=== PATIENT | male | born 1955 | race Caucasian/White ===

== ENCOUNTER 2018-10-01 08:00 | Outpatient (CLI) | payer BC ==
[2018-10-01 18:13] LABS: BASOPHILS # (AUTO) 0.1 10^3/uL (0.0-0.1); BASOPHILS % (AUTO) 0.9 %; EOSINOPHILS # (AUTO) 0.5 10^3/uL (0.0-0.7); EOSINOPHILS % (AUTO) 5.4 %; HGB - HEMOGLOBIN 13.5 g/dL (14.0-18.0); LYMPHOCYTES # (AUTO) 1.3 10^3/uL (1.5-3.5); LYMPHOCYTES % (AUTO) 14.8 %; MEAN CORPUSCULAR HEMOGLOBIN 30.7 pg (27.0-31.0); MEAN CORPUSCULAR HGB CONC 32.8 g/dL (32.0-36.0); MEAN CORPUSCULAR VOLUME 93.5 fL (80.0-94.0); MEAN PLATELET VOLUME 7.3 fL (7.4-11.4); MONOCYTES # (AUTO) 0.6 10^3/uL (0.0-1.0); MONOCYTES % (AUTO) 7.3 %; NEUTROPHILS # (AUTO) 6.2 10^3/uL (1.5-6.6); NEUTROPHILS % (AUTO) 71.6 %; PLT - PLATELET COUNT 218 10^3/uL (130-450); RED BLOOD COUNT 4.39 10^6/uL (4.70-6.10); RED CELL DISTRIBUTION WIDTH 13.8 % (12.0-15.0); WHITE BLOOD COUNT 8.7 x10^3/uL (4.8-10.8)
[2018-10-01 18:46] LABS: ALBUMIN/GLOBULIN RATIO 1.4 (1.0-2.2); ALKALINE PHOSPHATASE 96 IU/L (42-121); ALT ALANINE AMINOTRANSFERASE 13 IU/L (10-60); AST ASPARTATE AMINOTRANSFERASE 15 IU/L (10-42); BILIRUBIN,TOTAL 0.5 mg/dL (0.2-1.0); BUN - BLOOD UREA NITROGEN 20 mg/dL (6-20); CALCIUM 9.4 mg/dL (8.5-10.3); CARBON DIOXIDE - CO2 31 mmol/L (21-32); CHLORIDE 103 mmol/L (101-111); CHOL/HDL RATIO 3.5 (<5.0); CHOLESTEROL 182 mg/dL; CREATININE 1.3 mg/dL (0.6-1.2); GFR - MDRD 56 (>89); GLUCOSE 103 mg/dL (70-100); HDL CHOLESTEROL 52 mg/dL; LDL CHOLESTEROL,CALCULATED 116 mg/dL; LDL/HDL RATIO 2.2 (<3.6); SODIUM 140 mmol/L (135-145); TOTAL PROTEIN 6.9 g/dL (6.7-8.2); VLDL CHOLESTEROL 14 mg/dL
== END 2018-10-01 23:59 | disposition home or self-care (01) ==
LOC: LAB.S 08:00
PROVIDERS: ATTEND Nurse Practitioner Family
DX: I10 Essential (primary) hypertension (principal); Z13.220 Encounter for screening for lipoid disorders
CPT/HCPCS: 36415; 80053; 80061; 83721; 84443; 85025

== ENCOUNTER 2018-10-16 08:00 | Outpatient (CLI) | payer BC | END 2018-10-16 23:59 | disposition home or self-care (01) | LOC: LAB.R 08:00 | PROVIDERS: ATTEND Nurse Practitioner Family | DX: D64.9 Anemia, unspecified (principal) | CPT/HCPCS: 82270 ==

== ENCOUNTER 2019-03-11 13:20 | Outpatient (CLI) | payer BC ==
[2019-03-11 17:52] LABS: BASOPHILS # (AUTO) 0.1 10^3/uL (0.0-0.1); BASOPHILS % (AUTO) 1.2 %; EOSINOPHILS # (AUTO) 0.5 10^3/uL (0.0-0.7); EOSINOPHILS % (AUTO) 6.8 %; HGB - HEMOGLOBIN 13.7 g/dL (14.0-18.0); LYMPHOCYTES # (AUTO) 1.9 10^3/uL (1.5-3.5); LYMPHOCYTES % (AUTO) 28.4 %; MEAN CORPUSCULAR HEMOGLOBIN 29.9 pg (27.0-31.0); MEAN CORPUSCULAR HGB CONC 31.9 g/dL (32.0-36.0); MEAN CORPUSCULAR VOLUME 93.9 fL (80.0-94.0); MEAN PLATELET VOLUME 9.5 fL (7.4-11.4); MONOCYTES # (AUTO) 0.7 10^3/uL (0.0-1.0); MONOCYTES % (AUTO) 10.4 %; NEUTROPHILS # (AUTO) 3.6 10^3/uL (1.5-6.6); NEUTROPHILS % (AUTO) 52.9 %; PLT - PLATELET COUNT 213 10^3/uL (130-450); RED BLOOD COUNT 4.58 10^6/uL (4.70-6.10); RED CELL DISTRIBUTION WIDTH 13.4 % (12.0-15.0); WHITE BLOOD COUNT 6.8 x10^3/uL (4.8-10.8)
== END 2019-03-11 13:21 | disposition home or self-care (01) ==
LOC: LAB.F 13:20
PROVIDERS: ATTEND Registered Nurse
DX: D64.9 Anemia, unspecified (principal)
CPT/HCPCS: 36415; 85025

== ENCOUNTER 2020-04-13 10:02 | Outpatient (CLI) | payer BC ==
[2020-04-13 15:08] LABS: BASOPHILS # (AUTO) 0.1 10^3/uL (0.0-0.1); EOSINOPHILS # (AUTO) 0.5 10^3/uL (0.0-0.7); EOSINOPHILS % (AUTO) 7.5 %; HGB - HEMOGLOBIN 14.4 g/dL (14.0-18.0); LYMPHOCYTES # (AUTO) 1.9 10^3/uL (1.5-3.5); LYMPHOCYTES % (AUTO) 30.9 %; MEAN CORPUSCULAR HEMOGLOBIN 30.1 pg (27.0-31.0); MEAN CORPUSCULAR HGB CONC 32.1 g/dL (32.0-36.0); MEAN CORPUSCULAR VOLUME 93.5 fL (80.0-94.0); MEAN PLATELET VOLUME 9.4 fL (7.4-11.4); MONOCYTES # (AUTO) 0.5 10^3/uL (0.0-1.0); MONOCYTES % (AUTO) 7.7 %; NEUTROPHILS # (AUTO) 3.2 10^3/uL (1.5-6.6); NEUTROPHILS % (AUTO) 52.7 %; PLT - PLATELET COUNT 227 10^3/uL (130-450); RED BLOOD COUNT 4.79 10^6/uL (4.70-6.10); RED CELL DISTRIBUTION WIDTH 13.5 % (12.0-15.0)
[2020-04-13 15:34] LABS: ALBUMIN 4.1 g/dL (3.2-5.5); ALBUMIN/GLOBULIN RATIO 1.4 (1.0-2.2); ALKALINE PHOSPHATASE 94 IU/L (42-121); ALT ALANINE AMINOTRANSFERASE 13 IU/L (10-60); AST ASPARTATE AMINOTRANSFERASE 16 IU/L (10-42); BILIRUBIN,TOTAL 0.5 mg/dL (0.2-1.0); BUN - BLOOD UREA NITROGEN 19 mg/dL (6-20); CALCIUM 9.3 mg/dL (8.5-10.3); CARBON DIOXIDE - CO2 28 mmol/L (21-32); CHLORIDE 107 mmol/L (101-111); CHOLESTEROL 203 mg/dL; CREATININE 1.2 mg/dL (0.6-1.2); GLUCOSE 101 mg/dL (70-100); HDL CHOLESTEROL 51 mg/dL; LDL CHOLESTEROL,CALCULATED 139 mg/dL; LDL/HDL RATIO 2.7 (<3.6); SODIUM 139 mmol/L (135-145); VLDL CHOLESTEROL 13 mg/dL
== END 2020-04-13 10:03 | disposition home or self-care (01) ==
LOC: LAB.S 10:02
PROVIDERS: ATTEND Registered Nurse
DX: Z12.5 Encounter for screening for malignant neoplasm of prostate (principal); D64.9 Anemia, unspecified; I10 Essential (primary) hypertension; G47.00 Insomnia, unspecified; J44.9 Chronic obstructive pulmonary disease, unspecified
CPT/HCPCS: 36415; 80053; 80061; 83721; 84153; 84443; 85025

== ENCOUNTER 2021-04-06 10:30 | Outpatient (CLI) | payer BC | END 2021-04-06 10:31 | disposition home or self-care (01) | LOC: LAB.S 10:30 | PROVIDERS: ATTEND Thoracic Surgery (Cardiothoracic Vascular Surgery) | DX: J43.2 Centrilobular emphysema (principal); F17.291 Nicotine dependence, other tobacco product, in remission | CPT/HCPCS: 80323; 81599 ==

== ENCOUNTER 2021-05-04 12:36 | Outpatient (CLI) | payer BC | END 2021-05-04 12:37 | disposition home or self-care (01) | LOC: LAB.S 12:36 | DX: J43.2 Centrilobular emphysema (principal); F17.291 Nicotine dependence, other tobacco product, in remission | CPT/HCPCS: 80323; 81599 ==

== ENCOUNTER 2021-05-19 14:04 | Outpatient (CLI) | payer BC | END 2021-05-19 14:05 | disposition home or self-care (01) | LOC: LAB.S 14:04 | PROVIDERS: ATTEND Thoracic Surgery (Cardiothoracic Vascular Surgery) | DX: J43.2 Centrilobular emphysema (principal); F17.291 Nicotine dependence, other tobacco product, in remission | CPT/HCPCS: 80323; 81599 ==

== ENCOUNTER 2021-08-20 11:13 | Outpatient (CLI) | payer BC ==
[2021-08-20 15:25] LABS: BASOPHILS # (AUTO) 0.1 10^3/uL (0.0-0.1); BASOPHILS % (AUTO) 0.8 %; EOSINOPHILS # (AUTO) 0.4 10^3/uL (0.0-0.7); EOSINOPHILS % (AUTO) 5.3 %; HCT - HEMATOCRIT 45.8 % (42.0-52.0); HGB - HEMOGLOBIN 15.3 g/dL (14.0-18.0); LYMPHOCYTES # (AUTO) 1.5 10^3/uL (1.5-3.5); LYMPHOCYTES % (AUTO) 23.3 %; MEAN CORPUSCULAR HEMOGLOBIN 31.6 pg (27.0-31.0); MEAN CORPUSCULAR HGB CONC 33.4 g/dL (32.0-36.0); MEAN CORPUSCULAR VOLUME 94.6 fL (80.0-94.0); MEAN PLATELET VOLUME 9.2 fL (7.4-11.4); MONOCYTES # (AUTO) 0.6 10^3/uL (0.0-1.0); NEUTROPHILS % (AUTO) 61.4 %; PLT - PLATELET COUNT 268 10^3/uL (130-450); RED BLOOD COUNT 4.84 10^6/uL (4.70-6.10); RED CELL DISTRIBUTION WIDTH 13.4 % (12.0-15.0); WHITE BLOOD COUNT 6.6 x10^3/uL (4.8-10.8)
[2021-08-20 15:59] LABS: ALBUMIN/GLOBULIN RATIO 1.1 (1.0-2.2); ALKALINE PHOSPHATASE 93 IU/L (42-121); ALT ALANINE AMINOTRANSFERASE 20 IU/L (10-60); AST ASPARTATE AMINOTRANSFERASE 18 IU/L (10-42); BILIRUBIN,TOTAL 0.7 mg/dL (0.2-1.0); BUN - BLOOD UREA NITROGEN 21 mg/dL (6-20); CALCIUM 9.4 mg/dL (8.5-10.3); CARBON DIOXIDE - CO2 28 mmol/L (21-32); CHLORIDE 102 mmol/L (101-111); CHOL/HDL RATIO 3.9 (<5.0); CHOLESTEROL 242 mg/dL; CREATININE 1.1 mg/dL (0.6-1.2); GFR - MDRD 67 (>89); GLUCOSE 107 mg/dL (70-100); HDL CHOLESTEROL 62 mg/dL; LDL CHOLESTEROL,CALCULATED 167 mg/dL; LDL/HDL RATIO 2.7 (<3.6); POTASSIUM 4.1 mmol/L (3.5-5.0); SODIUM 139 mmol/L (135-145); TOTAL PROTEIN 7.5 g/dL (6.7-8.2); TRIGLYCERIDES 65 mg/dL; VLDL CHOLESTEROL 13 mg/dL
== END 2021-08-20 11:14 | disposition home or self-care (01) ==
LOC: LAB.S 11:13
PROVIDERS: ATTEND Nurse Practitioner Family
DX: I10 Essential (primary) hypertension (principal); Z12.5 Encounter for screening for malignant neoplasm of prostate; Z13.220 Encounter for screening for lipoid disorders
CPT/HCPCS: 36415; 80053; 80061; 83721; 84153; 84443; 85025

== ENCOUNTER 2021-08-30 10:28 | Outpatient (CLI) | payer MEDICARE, OTHER ==
--- NOTE | 2021-08-30 11:06 | XRAY Report ---
PROCEDURE: Chest 2 View X-Ray INDICATIONS: PULMONARY EMPHYSEMA TECHNIQUE: 2 view(s) of the chest. COMPARISON: None. FINDINGS: Surgical changes and devices: Left hilar metallic stents consistent with history of pulmonary valves. . Lungs and pleura: Hyperinflation suggesting emphysema. There is flattening of the right hemidiaphrag m. The right costophrenic sulcus is not included on the study. Slightly coarse interstitial markings. No consolidations, effusion, or pneumothorax. Mediastinum: Mediastinal contours are normal. Heart size is normal. Bones and chest wall: No suspicious bony abnormalities. Soft tissues appear unremarkable. IMPRESSION: 1. Moderate emphysematous changes without acute process such as pneumonia or pneumothorax. Reviewed by: Mary Beth Man MD on 08/30/2021 11:04 AM PST Approved by: Mary Beth Man MD on 08/30/2021 11:04 AM [facility] Station ID: [id number]
== END 2021-08-30 10:29 | disposition home or self-care (01) ==
LOC: DI.S 10:28
PROVIDERS: ATTEND Nurse Practitioner Family
DX: J43.9 Emphysema, unspecified (principal)

== ENCOUNTER 2021-08-31 12:29 | Emergency (ER) | payer MEDICARE, OTHER ==
[2021-08-31 12:57] LABS: BASOPHILS # (AUTO) 0.1 10^3/uL (0.0-0.1); BASOPHILS % (AUTO) 0.9 %; EOSINOPHILS # (AUTO) 0.3 10^3/uL (0.0-0.7); EOSINOPHILS % (AUTO) 3.6 %; HCT - HEMATOCRIT 46.8 % (42.0-52.0); HGB - HEMOGLOBIN 15.8 g/dL (14.0-18.0); LYMPHOCYTES # (AUTO) 1.5 10^3/uL (1.5-3.5); LYMPHOCYTES % (AUTO) 21.5 %; MEAN CORPUSCULAR HEMOGLOBIN 31.5 pg (27.0-31.0); MEAN CORPUSCULAR HGB CONC 33.8 g/dL (32.0-36.0); MEAN CORPUSCULAR VOLUME 93.2 fL (80.0-94.0); MEAN PLATELET VOLUME 8.5 fL (7.4-11.4); MONOCYTES # (AUTO) 0.6 10^3/uL (0.0-1.0); MONOCYTES % (AUTO) 8.1 %; NEUTROPHILS # (AUTO) 4.5 10^3/uL (1.5-6.6); NEUTROPHILS % (AUTO) 65.8 %; PLT - PLATELET COUNT 232 10^3/uL (130-450); RED BLOOD COUNT 5.02 10^6/uL (4.70-6.10); RED CELL DISTRIBUTION WIDTH 13.5 % (12.0-15.0); WHITE BLOOD COUNT 6.9 x10^3/uL (4.8-10.8)
[2021-08-31 13:12] LABS: ALBUMIN 4.5 g/dL (3.2-5.5); ALBUMIN/GLOBULIN RATIO 1.4 (1.0-2.2); BILIRUBIN,TOTAL 1.2 mg/dL (0.2-1.0); CALCIUM 10.1 mg/dL (8.5-10.3); CREATININE 1.2 mg/dL (0.6-1.2); POTASSIUM 4.2 mmol/L (3.5-5.0); TOTAL PROTEIN 7.7 g/dL (6.7-8.2)
--- NOTE | 2021-08-31 13:24 | XRAY Report ---
PROCEDURE: Chest 1 View X-Ray INDICATIONS: Chest Pain TECHNIQUE: One view of the chest was acquired. COMPARISON: 08/30/2021 FINDINGS: Surgical changes and devices: None. Lungs and pleura: Hyperinflation chronic interstitial changes noted, similar prior exam. Mediastinum: Mediastinal contours appear normal. Heart size is normal. Bones and chest wall: No suspicious bony lesions. Overlying soft tissues appear unremarkable. IMPRESSION: Hyperinflation chronic interstitial changes without change. No acute findings Reviewed by: Anthony Rodriguez MD on 08/31/2021 12:22 PM [place] Approved by: Anthony Rodriguez MD on 08/31/2021 12:22 PM [facility] Station ID: [id number]
--- NOTE | 2021-08-31 13:49 | ED Physician Documentation ---
PD HPI DYSPNEA - Stated complaint Stated Complaint: SOA/FAST HR - Chief complaint Chief Complaint: Cardiac - History obtained from History obtained from: Patient - History of Present Illness Timing - onset: How many weeks ago (1) Timing - onset during: Light activity Timing - duration: Seconds, Minutes Timing - details: Abrupt onset, Now resolved Inciting event(s): Other (has had recent placement of zypher valves.) Improved by: Rest Worsened by: Other (seems like position or activity to illicit) Associated symptoms: Wheezing, Palpitations. No: Fever, Cough, Hemoptysis, Chest pain / discomfort, Diaphoresis, Bilateral edema, Unilateral edema, Anxiety Similar symptoms before: Has not had sx before Recently seen: Surgery - Additional information Additional information: 66-year-old male with a history of emphysema has had a procedure done at the [facility] to place some [place] valves into his left lung. He was in the hospital for 4 days and felt that he had some improvement in his breathing and his ability to complete his exercises. He states that he has been using his treadmill walking a mile per day and yesterday did 4 miles. He has had episodes of acute shortness of breath accompanied by what feels like a rapidly pounding heart rate. He states that he is completely out of breath talking for breath when this occurs and the episodes last 30 seconds to a minute. He has had 2 episodes in the past 24 hours. He went in to see his primary care doctor and was referred to the emergency department for further evaluation. Review of Systems Constitutional: denies: Fever Eyes: denies: Decreased vision Ears: denies: Ear pain Nose: denies: Congestion Throat: denies: Sore throat Cardiac: reports: Palpitations. denies: Chest pain / pressure, Pedal edema, Calf pain Respiratory: reports: Dyspnea, Cough, Wheezing GI: denies: Abdominal Pain, Nausea, Vomiting, Constipation, Diarrhea : denies: Dysuria, Frequency Skin: denies: Rash Musculoskeletal: denies: Neck pain, Back pain, Extremity pain Neurologic: denies: Generalized weakness PD PAST MEDICAL HISTORY - Past Medical History Past Medical History: Yes Cardiovascular: Hypertension, High cholesterol Respiratory: Emphysema Neuro: None Endocrine/Autoimmune: None GI: None : None HEENT: None Psych: None Musculoskeletal: None Derm: None - Past Surgical History Past Surgical History: Yes - Allergies Allergies/Adverse Reactions: Allergies Allergy/AdvReac Type Severity Reaction Status Date / Time No Known Drug Allergies Allergy Verified 08/31/21 12:45 - Social History Does the pt smoke?: No Smoking Status: Never smoker Does the pt drink ETOH?: No Does the pt have substance abuse?: No - Immunizations Immunizations are current?: Yes - POLST Patient has POLST: No PD ED PE NORMAL - Vitals Vital signs reviewed: Yes (tachy and hypertensive) - General General: Alert and oriented X 3, No acute distress, Well developed/nourished - HEENT HEENT: Atraumatic, PERRL, EOMI - Neck Neck: Supple, no meningeal sign, No bony TTP - Cardiac Cardiac: No murmur, Other (tachy to 100) - Respiratory Respiratory: No respiratory distress, Other (diminished breath sounds (marked)) - Abdomen Abdomen: Soft, Non tender - Back Back: No CVA TTP, No spinal TTP - Derm Derm: Normal color, Warm and dry, No rash - Extremities Extremities: No deformity, No edema - Neuro Neuro: Alert and oriented X 3, counter clerk 2-12 intact, No motor deficit, No sensory deficit, Normal speech Eye Opening: Spontaneous Motor: Obeys Commands Verbal: Oriented GCS Score: 15 - Psych Psych: Normal mood, Normal affect Results - Vitals Vitals: Vital Signs - 24 hr 08/31/21 08/31/21 08/31/21 12:35 13:15 14:00 Temperature 36.8 C Heart Rate 108 H 75 72 Respiratory 24 18 15 Rate Blood Pressure 149/110 H 150/93 H 122/87 H O2 Saturation 96 98 94 08/31/21 08/31/21 08/31/21 14:30 15:00 15:30 Temperature Heart Rate 70 75 88 Respiratory 15 11 L 18 Rate Blood Pressure 123/80 135/97 H 158/105 H O2 Saturation 95 94 96 08/31/21 16:00 Temperature Heart Rate 89 Respiratory 18 Rate Blood Pressure 129/79 O2 Saturation 96 Oxygen O2 Source Room air - EKG (time done) 1244 Rate: Rate (enter#) (90) Rhythm: NSR [place]: RAD Compare to prior EKG: Changed from prior EKG (SPT 08-25-2015 inferior Q waves have developed) Computer interpretation: Agree with computer - Labs Labs: Laboratory Tests 08/31/21 08/31/21 08/31/21 12:54 12:54 12:54 WBC 6.9 RBC 5.02 Hgb 15.8 Hct 46.8 MCV 93.2 MCH 31.5 H MCHC 33.8 RDW 13.5 Plt Count 232 MPV 8.5 Neut # (Auto) 4.5 Lymph # (Auto) 1.5 [place] # (Auto) 0.6 Eos # (Auto) 0.3 Baso # (Auto) 0.1 Absolute Nucleated RBC 0.00 Nucleated RBC % 0.0 Sodium 139 Potassium 4.2 Chloride 99 L Carbon Dioxide 28 Anion Gap 12.0 BUN 15 Creatinine 1.2 Estimated GFR (MDRD) 61 L Glucose 113 H Calcium 10.1 Total Bilirubin 1.2 H AST 24 ALT 27 Alkaline Phosphatase 101 Troponin I High Sens 4.9 B-Natriuretic Peptide Total Protein 7.7 Albumin 4.5 Globulin 3.2 Albumin/Globulin Ratio 1.4 Lipase 31 08/31/21 12:54 WBC RBC Hgb Hct MCV MCH MCHC RDW Plt Count MPV Neut # (Auto) Lymph # (Auto) [place] # (Auto) Eos # (Auto) Baso # (Auto) Absolute Nucleated RBC Nucleated RBC % Sodium Potassium Chloride Carbon Dioxide Anion Gap BUN Creatinine Estimated GFR (MDRD) Glucose Calcium Total Bilirubin AST ALT Alkaline Phosphatase Troponin I High Sens B-Natriuretic Peptide 38 Total Protein Albumin Globulin Albumin/Globulin Ratio Lipase - Rads (name of study) chest Radiology: Prelim report reviewed (Impression: Hyperinflation chronic interstitial changes without change. No acute findings.), EMP read indepedently, See rad report PD MEDICAL DECISION MAKING - ED course Complexity details: reviewed results, re-evaluated patient, considered differential, d/w patient ED course: CT angio chest Impression: No evidence of pulmonary embolism. Moderate severity emphysematous changes. Small tree-in-bud nodules in the right upper lobe may be infectious or inflammatory versus represent remote granulomatous exposure. Borderline enlarged right hilar and left mediastinal lymph nodes may be reactive although they raise suspicion for metastatic lymphadenopathy. Follow-up in 4 to 6 weeks recommended to document stability/resolution. This 66-year-old male with a history of severe emphysema has undergone a procedure with his zypher valves. He is having trouble with episodic severe dyspnea accompanied by a sensation that his heart is beating out of his chest. The episodes are brief and he has recovered without sequela. I consulted the thoracic surgeon at [facility] (spoke to Reji) and their recommendation is to have the patient follow up with them this week. We did obtain a CT angio of the chest without evidence of PE. The plugs are evident on the scan and clustered to the left hilar area. My explanation to the patient is that maybe what happens is a large bronchus spasm causing the acute shortness of breath and giving the sensation of rapid heart rate. He does not have PE and the remainder of his work up is unremarkable. He has followup with thoracic and they will call him to move the date of follow up to sooner. Departure - Departure Disposition: Home, Self Care Clinical Impression: Dyspnea, unspecified Qualifiers: Dyspnea type: unspecified Qualified Code(s): R06.00 - Dyspnea, unspecified Condition: Stable Instructions: ED Dyspnea Shortness of Breath, ED Palpitations Follow-Up: TIANA RAI ARNP [Primary Care Provider] - Comments: Matthew, today we did not find any abnormality to your electrocardiogram or sensitive marker of damage to your heart. There is no evidence of pulmonary embolism. The only explanation that I can think of that would be reasonable in this situation is a large bronchus spasm causing a sensation that your heart is racing. Follow-up with your doctors at the [facility] for further evaluation this week as planned. Discharge Date/Time: 08/31/21 16:27
[2021-08-31] MEDS ORDERED: IOPAMIDOL-300 100 ML VIAL ONE (14:20)
--- NOTE | 2021-08-31 15:09 | CT Report ---
PROCEDURE: ANGIO CHEST W/WO INDICATIONS: Episodic dsypnea with tachycardia CONTRAST: IV CONTRAST: Isovue 300 ml: 80 PO CONTRAST: *NO PO CONTRAST ml50 TECHNIQUE: After the administration of intravenous contrast, 2 mm axial images were acquired from the pulmonary apices to the posterior costophrenic angles during the arterial phase. In addition, 1 mm lung kernel and 5 mm soft tissue kernel reconstructions were performed. 3-dimensional coronal oblique maximum int ensity projection (MIP) reformats, 8 mm axial MIP, and 5 mm coronal and sagittal MPR reformats were t hen performed through the thorax. For radiation dose reduction, the following was used: automated exp osure control, adjustment of mA and/or kV according to patient size. COMPARISON: None FINDINGS: Image quality: Excellent. Pulmonary arteries: Pulmonary arteries are normal in size, and demonstrate no intraluminal filling d efects to suggest central pulmonary embolism. Lungs and pleura: Moderate apical predominant paraseptal and centrilobular emphysematous changes. Yannick e-in-bud nodularity in the right upper lobe apically and laterally. Mediastinum: Right hilar lymph node measuring 1.5 cm is borderline enlarged. There are numerous promi nent but not threshold enlarged mediastinal lymph nodes, for example nodes in the AP window and preva scular stations (series 5 images 54-65) Bones and chest wall: No suspicious bony lesions. Ribs and thoracic spine appear intact throughout. No axillary or supraclavicular adenopathy. The thyroid is normal in size and there are no incident al findings. Abdomen: Visualized upper abdominal solid organs appear normal in the early arterial phase of enhanc ement. IMPRESSION: No evidence of pulmonary embolism. Moderate severity emphysematous changes. Small tree-in-bud nodules in the right upper lobe may be infectious or inflammatory versus represent remote granulomatous exposure. Borderline enlarged right hilar and left mediastinal lymph nodes may be reactive although they raise suspicion for metastatic lymphadenopathy. Follow-up in 4-6 weeks recommended to document stability/re solution. Reviewed by: Yao Chávez MD on 08/31/2021 3:07 PM PST Approved by: Yao Chávez MD on 08/31/2021 3:07 PM PST Station ID: [id number]
[2021-08-31 16:19] VITALS: BP 129/79
[2021-08-31] MEDS ORDERED: IOPAMIDOL-300 100 ML VIAL IVP ONE (21:08)
== END 2021-08-31 16:27 | disposition home or self-care (01) ==
LOC: ED 12:29
DX: R06.00 Dyspnea, unspecified (principal); J43.9 Emphysema, unspecified; I10 Essential (primary) hypertension
CPT/HCPCS: 36415; 71045; 71275; 80053; 83690; 83880; 84484; 85025; 93005; 99284; Q9967

== ENCOUNTER 2022-01-14 08:00 | Outpatient (CLI) | payer BC | END 2022-01-14 08:01 | disposition home or self-care (01) | LOC: LAB.S 08:00 | PROVIDERS: ATTEND Physician Assistant Medical | DX: U07.1 COVID-19 (principal) ==

== ENCOUNTER 2023-05-10 12:52 | Outpatient (CLI) | payer MEDICARE, BC ==
--- NOTE | 2023-05-10 14:11 | XRAY Report ---
PROCEDURE: Chest 2 View X-Ray INDICATIONS: COPD TECHNIQUE: 2 views of the chest were acquired. COMPARISON: CT chest 1214 x-ray chest FINDINGS: Surgical changes and devices: None. Lungs and pleura: Streaky linear opacities with blunting of the right costophrenic angle region comp ared to 2020. Mediastinum: Mediastinal contours appear normal. Heart size is normal. Bones and chest wall: No suspicious bony lesions. Overlying soft tissues appear unremarkable. IMPRESSION: Costophrenic angle which may represent trace effusion versus scarring. Reviewed by: Bianca Amaya MD on 05/10/2023 2:09 PM PDT Approved by: Bianca Amaya MD on 05/10/2023 2:09 PM PDT Station ID: [id number]
== END 2023-05-10 12:53 | disposition home or self-care (01) ==
LOC: DI.S 12:52
PROVIDERS: ATTEND Thoracic Surgery (Cardiothoracic Vascular Surgery)
DX: J44.9 Chronic obstructive pulmonary disease, unspecified (principal)

== ENCOUNTER 2023-06-03 08:00 | Outpatient (CLI) | payer MEDICARE, OTHER ==
--- NOTE | 2023-06-03 18:09 | XRAY Report ---
PROCEDURE: Chest 2 View X-Ray INDICATIONS: COVID+/COPD WITH EXACERBATION TECHNIQUE: 2 views of the chest were acquired. COMPARISON: 05/10/2023 FINDINGS: Surgical changes and devices: None. Lungs and pleura: No pleural effusions or pneumothorax. Flattening of the hemidiaphragms can be see n on the lateral view. Mildly increased interstitial prominence can be seen inferiorly. Mediastinum: Mediastinal contours appear normal. Heart size is normal. Bones and chest wall: No suspicious bony lesions. Overlying soft tissues appear unremarkable. IMPRESSION: Mild increased interstitial prominence can be seen involving the inferior lungs. Please consider pulmonary edema versus atypical infection. Hyperexpanded lungs are are again seen, which are consistent with COPD. Reviewed by: Teofilo Sultana MD on 06/03/2023 5:08 PM [facility] Approved by: Teofilo Sultana MD on 06/03/2023 5:08 PM [facility] Station ID: [id number]
== END 2023-06-03 23:59 | disposition home or self-care (01) ==
LOC: DI.S 08:00
PROVIDERS: ATTEND Emergency Medicine
DX: J44.1 Chronic obstructive pulmonary disease with (acute) exacerbation (principal); U07.1 COVID-19

== ENCOUNTER 2023-09-07 13:31 | Outpatient (CLI) | payer MEDICARE, OTHER ==
--- NOTE | 2023-09-07 21:05 | Ultrasound Report ---
PROCEDURE: Retroperitoneal INDICATIONS: HX OF KIDNEY STONES TECHNIQUE: Ultrasound of the kidneys and bladder was obtained. COMPARISON: None FINDINGS: Right kidney: 9.1 cm length. 0.8 cm cortical thickness. Normal renal echotexture present. No hydron ephrosis. 2 separate shadowing calculi measure 5 mm and 7 mm respectively No solid mass lesion. Left kidney: 9.7 cm length. 0.9 cm cortical thickness. Normal renal echotexture present. No hydrone phrosis. The 7 mm shadowing calculi No solid mass lesion. Bladder: Pre-void bladder volume is 101 mL. Post-void residual is 11 mL. Pre-void images demonstra te no intraluminal masses or stones. Miscellaneous: Prostate measures 3.8 x 2.9 x 3.74 calculated volume of 27.7 cc. IMPRESSION: Nonobstructive bilateral renal calculi Reviewed by: Anthony Rodriguez MD on 09/07/2023 8:04 PM [facility] Approved by: Anthony Rodriguez MD on 09/07/2023 8:04 PM [facility] Station ID: [id number]
== END 2023-09-07 13:32 | disposition home or self-care (01) ==
LOC: DI 13:31
PROVIDERS: ATTEND Urology
DX: N20.0 Calculus of kidney (principal); Z87.442 Personal history of urinary calculi

== ENCOUNTER 2023-11-08 10:47 | Outpatient (CLI) | payer MEDICARE, OTHER ==
--- NOTE | 2023-11-08 13:30 | XRAY Report ---
PROCEDURE: Shoulder 2+V LT INDICATIONS: PAIN IN LEFT SHOULDER TECHNIQUE: 3 views of the shoulder were acquired. COMPARISON: None. FINDINGS: Bones: No fractures or dislocations. No suspicious bony lesions. Visualized ribs appear intact. Moderate acromioclavicular degenerative narrowing. No erosions. No osteophytes. There is mild inferio r subluxation of the humeral head without gross dislocation. Soft tissues: No suspicious soft tissue calcifications. The visualized lungs are within normal limi ts. IMPRESSION: Moderate acromioclavicular degenerative narrowing. Reviewed by: Bianca Amaya MD on 11/08/2023 1:29 PM PST Approved by: Bianca Amaya MD on 11/08/2023 1:29 PM PST Station ID: [id number]
== END 2023-11-08 10:48 | disposition home or self-care (01) ==
LOC: DI.S 10:47
PROVIDERS: ATTEND Nurse Practitioner Family
DX: M19.012 Primary osteoarthritis, left shoulder (principal)

== ENCOUNTER 2024-01-08 07:41 | Day surgery (SDC) | payer MEDICARE, OTHER ==
[2024-01-08] MEDS: LACTATED RINGERS 1,000 ML IV ONE (07:50)
--- NOTE | 2024-01-08 07:55 | ANESTHESIA ---
Pre-Anesthesia VS, & Labs - Diagnosis screening, positive cologuard - Procedure colonoscopy Height: 5 ft 8 in - NPO >8 hours Last Fluid Intake: am prep - Lab Results Lab results reviewed: Yes Home Medications and Allergies Home Medications: Ambulatory Orders Albuterol 2.5 mg INH Q4H PRN 01/03/24 Fluticasone/Umeclidin/Vilanter [Trelegy Ellipta 200-62.5-25] 1 inh INH DAILY 01/03/24 Lisinopril [Zestril] 10 mg PO DAILY 01/03/24 Albuterol 2.5 mg INH Q4H PRN 01/03/24 Azithromycin [Zithromax] 250 mg PO DAILY 01/03/24 Fluticasone/Umeclidin/Vilanter [Trelegy Ellipta 200-62.5-25] 1 inh INH DAILY 01/03/24 Lisinopril [Zestril] 10 mg PO DAILY 01/03/24 Allergies/Adverse Reactions: Allergies Allergy/AdvReac Type Severity Reaction Status Date / Time No Known Drug Allergies Allergy Verified 08/31/21 12:45 Anes History & Medical History - Anesthetic History Anesthesia Complications: reports: No previous complications Family history of Anesthesia Complications: Denies Family history of Malignant Hyperthermia: Denies - Medical History Cardiovascular: reports: Hypertension Pulmonary: reports: Emphysema, Other Gastrointestinal: reports: Ulcers Urinary: reports: Benign prostate hypertrophy, Kidney stones Neuro: reports: None Musculoskeletal: reports: None Endocrine/Autoimmune: reports: None Blood Disorders: reports: None Skin: reports: None Smoking Status: Never smoker - Surgical History General: reports: Colonoscopy Cardiothoracic: reports: Other Exam General: Alert, Oriented x3, Cooperative Dental: WNL Mouth Openin Fingerbreadth Neck Mobility: Normal Mallampati classification: II Thyromental Distance: 4-6 cm Respiratory: Lungs clear, Decreased breath sounds Cardiovascular: Regular rate Neurological: Normal speech Mental/Cognitive Status: Alert/Oriented X3, Normal for patient Cognitive Status: Within normal limits Plan Anesthesia Type: Total IV Consent for Procedure(s) Verified and Reviewed: Yes Code Status: Attempt Resuscitation ASA classification: 3-Severe systemic disease Is this case an emergency?: No
[2024-01-08] MEDS ORDERED: PROPOFOL 500 MG/50 ML 500 MG/50 ML VIAL ONE (08:40)
[2024-01-08] MEDS ORDERED: MIDAZOLAM 2 MG/2 ML VIAL ONE (09:12)
[2024-01-08] MEDS: LACTATED RINGERS 150 ML IV ONE (10:09)
[2024-01-08 10:17] VITALS: O2SAT 96
[2024-01-08 10:46] VITALS: BP 12/75
--- NOTE | 2024-01-08 11:26 | ANESTHESIA POST OP EVALUATION ---
Anesthesia Post Eval - Post Anesthesia Eval Vitals: Last Vital Signs Temp 36.7 C 01/08/24 10:36 Pulse 74 01/08/24 10:36 Resp 14 01/08/24 10:36 BP 12/75 L 01/08/24 10:36 Pulse Ox 96 01/08/24 10:36 O2 Flow Rate CV Function Including HR & BP: Stable Pain Control: Satisfactory Nausea & Vomiting: Negative Mental Status: Baseline Respiratory Status: Airway Patent Hydration Status: Satisfactory Anesthesia Complications: None
== END 2024-01-08 07:42 | disposition home or self-care (01) ==
LOC: SDS 07:41
PROVIDERS: ATTEND Surgery
PROC: 0DBL8ZZ Excision of Transverse Colon, Via Natural or Artificial Opening Endoscopic (ICD-10-PCS; 2024-01-08)
PROC: 0DBM8ZZ Excision of Descending Colon, Via Natural or Artificial Opening Endoscopic (ICD-10-PCS; principal; 2024-01-08 09:00)
DX: Z12.11 Encounter for screening for malignant neoplasm of colon (principal); R19.5 Other fecal abnormalities; D12.3 Benign neoplasm of transverse colon; D12.4 Benign neoplasm of descending colon; K57.30 Diverticulosis of large intestine without perforation or abscess without bleeding; K64.1 Second degree hemorrhoids; J43.9 Emphysema, unspecified; Z87.891 Personal history of nicotine dependence
CPT/HCPCS: 45380; 45385; J7120

== ENCOUNTER 2024-01-29 12:42 | Outpatient (CLI) | payer MEDICARE, OTHER ==
--- NOTE | 2024-01-29 16:29 | XRAY Report ---
PROCEDURE: Shoulder 1V LT INDICATIONS: PAIN IN LEFT SHOULDER TECHNIQUE: 3 views of the shoulder were acquired. COMPARISON: X-ray shoulder 11/08/2023 FINDINGS: Bones: No fractures or dislocations. No suspicious bony lesions. Visualized ribs appear intact. Acromioclavicular degenerative narrowing is present. It is overall stable compared to prior exam. Soft tissues: No suspicious soft tissue calcifications. The visualized lungs are within normal limi ts. IMPRESSION: No visualized acute fracture or dislocation. However, occult injury cannot be excluded. Recommend rodrigo rt interval imaging follow-up in 7-10 days as clinically indicated for additional evaluation. Reviewed by: Bianca Amaya MD on 01/29/2024 4:28 PM PDT Approved by: Bianca Amaya MD on 01/29/2024 4:28 PM PDT Station ID: [id number]
== END 2024-01-29 12:43 | disposition home or self-care (01) ==
LOC: DI.S 12:42
PROVIDERS: ATTEND Physician Assistant Surgical
DX: M25.512 Pain in left shoulder (principal)